=== PATIENT | female | born 1955 | race Caucasian/White ===

== ENCOUNTER 2018-03-12 16:30 | Emergency (ER) | payer MEDICARE, BC ==
[~2018-03-12 16:30] MED LIST: Iopamidol 370 76% 100 ML VIAL ONE
[2018-03-12 17:29] LABS: #Basophils 0.1 thou/uL (0.0-0.2); #Eosinphils 0.1 thou/uL (0.0-0.7); #Lymphocytes 1.4 thou/uL (1.20-3.40); #Monocytes 0.4 thou/uL (0.11-0.59); #Neutrophils 5.5 thou/uL (1.40-6.50); %Basophils 0.7 % (0.0-1.0); %Eosinophils 1.2 % (0.0-10.0); %Lymphocytes 18.9 % (21.0-51.0); %Monocytes 5.3 % (0.0-10.0); %Neutrophils 73.8 % (42.0-75.0); Hemoglobin 13.2 g/dL (12.0-16.0); Mean Corpuscular HGB CONC 34.3 g/dL (32.0-36.0); Mean Corpuscular Hemoglobin 28.4 pg (27.0-31.0); Mean Corpuscular Volume 82.8 fL (78.0-98.0); Mean Platelet Volume 6.4 fL (7.4-10.4); Platelet Count 242 thou/uL (130-400); RBC Distribution Width 11.8 % (11.5-14.5); Red Blood Cell (RBC) Count 4.65 mill/uL (4.20-5.40); White Blood Cell (WBC) Count 7.4 thou/uL (4.8-10.8)
[2018-03-12] MEDS ORDERED: Ondansetron HCl/PF 4 MG/2 ML Vial ONE (17:39)
[2018-03-12 17:40] LABS: ALT (SGPT) 36 U/L (8-55); AST (SGOT) 30 U/L (5-34); Albumin 4.3 g/dL (3.5-5.0); Alkaline Phosphatase 79 U/L (40-150); Anion Gap 14 mmol/L (10-20); BUN (Urea Nitrogen) 18 mg/dL (9.8-20.1); Bilirubin, Total 0.5 mg/dL (0.2-1.2); Calc. Creatinine Clearance 0 mL/min (70-130); Calcium 10.7 mg/dL (7.8-10.44); Carbon Dioxide 27 mmol/L (22-29); Chloride 102 mmol/L (98-107); Estimated GFR-MDRD 58; Globulin 3.5 g/dL (2.4-3.5); Glucose 123 mg/dL (70-105); Lipase 37 U/L (8-78); Potassium 3.9 mmol/L (3.5-5.1); Protein, Total 7.8 g/dL (6.0-8.3); Sodium 139 mmol/L (136-145)
[2018-03-12 17:41] LABS: CKMB 0.8 ng/mL (0-6.6); Troponin I Less than 0.010 ng/mL (< 0.028)
[2018-03-12 19:20] LABS: Bilirubin Negative (Negative); Blood, Urine Moderate (Negative); Clarity Cloudy (Clear); Glucose, Urine (Dipstick) Negative (Negative); Leukocyte Negative (Negative); Nitrite Negative (Negative); Protein, Urine (Dipstick) 100 mg/dL (Neg-Trace); Specific Gravity, Urine 1.015 (1.005-1.030); pH, Urine 5.5 (5.0-9.0)
[2018-03-12 19:22] LABS: Bacteria/HPF 1+ HPF (None Seen); Squamous Epithelial 0-3 HPF (0-3)
[2018-03-12 19:23] LABS: Crystals/HPF 3+ AMORPH URATES HPF (Negative)
--- NOTE | 2018-03-12 20:41 | CT ---
CT ABDOMEN AND PELVIS WITH IV AND ORAL CONTRAST 03/12/18 HISTORY: Abdominal pain. Nausea. Cervical cancer. FINDINGS: The lung bases are clear. Bariatric lap band with dilatation of the distal esophagus. Gallbladder is surgically absent. The liver, spleen, kidneys, adrenal glands and pancreas are unremarkable. Calcific ations within the arterial structures. Urinary bladder is decompressed. Uterus is surgically absent. No enlarged lymph nodes are visible. Degenerative changes of the lumbar spine. IMPRESSION: Postoperative changes of the abdomen and pelvis. No acute abnormalities are demonstrated. POS: [facility]
[2018-03-15 20:15] LABS: Chlamydia by PCR Not Detected (NotDetected); GC by PCR Not Detected (NotDetected)
== END 2018-03-12 20:02 | disposition home or self-care (01) ==
LOC: SCSER 16:30
DX: N93.9 Abnormal uterine and vaginal bleeding, unspecified (principal); R11.2 Nausea with vomiting, unspecified; E78.5 Hyperlipidemia, unspecified; F32.9 Major depressive disorder, single episode, unspecified; Z79.899 Other long term (current) drug therapy
CPT/HCPCS: 74177; 80053; 81003; 81015; 82553; 83605; 83690; 84484; 85025; 87480; 87491; 87510; 87591; 87660; 93005; 96361; 96374; J2405

== ENCOUNTER 2024-04-15 09:58 | Inpatient (IN) | payer BC, MEDICARE ==
[2024-04-20] MEDS ORDERED: Propofol 500 MG/50 ML VIAL ONE (07:06)
[2024-04-20] MEDS ORDERED: Heparin 5,000 UNITS/ML VIAL ONE (07:59)
[2024-04-20] MEDS ORDERED: PROPOFOL 20 ML ONE ×2 (08:10→09:03)
[2024-04-20] MEDS ORDERED: fentaNYL 50 mcg/mL 1 mL Vial ONE ×5 (09:03→15:55)
[2024-04-20] MEDS ORDERED: EPINEPHrine 1 MG/ML VIAL ONE (09:10)
[2024-04-20] MEDS ORDERED: Bupivacaine 0.25% HCL 30 ML VIAL ONE (09:11)
[2024-04-20] MEDS ORDERED: Sodium Chloride 0.9% 100 ML ONE (09:30)
[2024-04-20] MEDS ORDERED: CEFAZOLIN 2 GM VIAL ONE (09:30)
[2024-04-20] MEDS ORDERED: fentaNYL PF 100 MCG/2 ML SYRINGE ONE (09:38)
[2024-04-20] MEDS ORDERED: Lidocaine 1% PF 5 ML VIAL ONE (09:45)
[2024-04-20] MEDS ORDERED: Rocuronium Bromide 10 MG/ML (10ML VIAL) ONE (09:45)
[2024-04-20] MEDS ORDERED: Dexamethasone 20 MG/5 ML VIAL ONE (09:59)
[2024-04-20] MEDS ORDERED: ePHEDrine Sulfate 50 MG/10 ML VIAL ONE (09:59)
[2024-04-20] MEDS ORDERED: PROPOFOL 40 ML ONE (11:08)
[2024-04-20] MEDS ORDERED: PHENYLEPHRINE-NS 100 MCG/ML 10 ML SYRINGE ONE (11:30)
[2024-04-20] MEDS ORDERED: SUGAMMADEX SODIUM 200 MG/2 ML VIAL ONE ×2 (12:03→12:23)
[2024-04-20] MEDS ORDERED: Ondansetron PF 4 MG/2 ML Vial ONE (12:03)
[2024-04-20] MEDS ORDERED: Promethazine HCl 25 MG/ML VIAL IM PRN (12:06)
[2024-04-20] MEDS ORDERED: Ondansetron HCl/PF 4 MG/2 ML Vial IVP PRN (12:06)
[2024-04-20] MEDS ORDERED: traMADol HCl 50 MG TAB PO PRN (12:52)
[2024-04-20] MEDS ORDERED: Glucagon 1 MG/ML KIT IM PRN (12:52)
[2024-04-20] MEDS ORDERED: Dextrose 50% Abboject 50 ML SYRINGE SLOW IVP PRN (12:52)
[2024-04-20] MEDS ORDERED: oxyCODONE 5 MG TAB PO PRN (12:52)
[2024-04-20] MEDS ORDERED: hydrALAZINE 20 MG/ML VIAL SLOW IVP PRN (12:52)
[2024-04-20] MEDS ORDERED: Ondansetron PF 4 MG/2 ML Vial IVP PRN (12:52)
[2024-04-20] MEDS ORDERED: Dextrose 5% in Water 1,000 ML IV PRN (12:52)
[2024-04-20] MEDS ORDERED: Ipratropium/Albuterol 3 ML NEB NEB PRN (12:52)
[2024-04-20] MEDS ORDERED: diphenhydrAMINE 50 MG/ML VIAL IVP PRN (12:52)
[2024-04-20] MEDS: Acetaminophen 650 MG/20.3 ML UDCUP PO SCH (13:30)
[2024-04-20] MEDS: Ketorolac Tromethamine 30 MG (1 mL) VIAL IVP SCH (17:34)
[2024-04-20 17:43] VITALS: BMI 40.4
[2024-04-20] MEDS: D5 1/2 NS w/20 mEq KCL 1,000 ML IV SCH (18:26)
[2024-04-20] MEDS: Promethazine HCl 25 MG/ML VIAL IM PRN (21:36)
[2024-04-21 05:02] LABS: #Basophils Less than 0.03 10x3/uL (0.0-0.2); #Eosinophils Less than 0.03 10x3/uL (0.0-0.7); %Basophils 0.1 % (0.0-1.0); %Lymphocytes 10.2 % (21.0-51.0); %Neutrophils 82.4 % (42.0-75.0); Hematocrit 32.6 % (36.0-47.0); Mean Corpuscular HGB CONC 30.7 g/dL (32.0-36.0); Mean Corpuscular Hemoglobin 28.7 pg (27.0-31.0); Mean Corpuscular Volume 93.4 fL (78.0-98.0); Mean Platelet Volume 8.6 fL (7.4-10.4); Platelet Count 196 10x3/uL (130-400); RBC Distribution Width 13.6 % (11.5-14.5); Red Blood Cell (RBC) Count 3.49 mill/uL (4.20-5.40)
[2024-04-21 05:21] LABS: Anion Gap 9 mmol/L (10-20); BUN (Urea Nitrogen) 11 mg/dL (9.8-20.1); Calc. Creatinine Clearance 106 mL/min (70-130); Calcium 8.5 mg/dL (7.8-10.44); Carbon Dioxide 26 mmol/L (23-31); Chloride 110 mmol/L (98-107); Estimated GFR 72; Glucose 130 mg/dL (80-115); Potassium 4.3 mmol/L (3.5-5.1); Sodium 141 mmol/L (136-145)
[2024-04-21 07:45] VITALS: BP 130/69; TEMP 98.7
[2024-04-21] MEDS: Enoxaparin 40 MG (0.4 mL) SYRINGE SC SCH (08:09)
[2024-04-21] MEDS: Pantoprazole 40 MG VIAL IVP SCH (08:09)
== END 2024-04-21 09:09 | disposition home or self-care (01) | DRG 621 ==
LOC: SURG A 04-20 06:37 → EDSTATUS 04-20 13:00 → SURG B 04-20 17:08
PROVIDERS: ADMIT Surgery; ATTEND Surgery
PROC: 0D164ZA Bypass Stomach to Jejunum, Percutaneous Endoscopic Approach (ICD-10-PCS; principal; 2024-04-20)
PROC: 8E0W4CZ Robotic Assisted Procedure of Trunk Region, Percutaneous Endoscopic Approach (ICD-10-PCS; 2024-04-20)
PROC: 0DP64CZ Removal of Extraluminal Device from Stomach, Percutaneous Endoscopic Approach (ICD-10-PCS; 2024-04-20)
DX: E66.01 Morbid (severe) obesity due to excess calories (principal); K21.9 Gastro-esophageal reflux disease without esophagitis; Z68.41 Body mass index [BMI] 40.0-44.9, adult
CPT/HCPCS: 36415; 80048; 85025; J0171; J0665; J1100; J1644; J1650; J1885; J2405; J2470; J2550; J2704; J3010; J3480

== ENCOUNTER 2024-04-15 10:59 | Outpatient (CLI) | payer BC, MEDICARE ==
[2024-04-15 13:56] LABS: #Basophils 0.05 10x3/uL (0.0-0.2); %Basophils 0.7 % (0.0-1.0); %Eosinophils 2.5 % (0.0-10.0); %Lymphocytes 20.3 % (21.0-51.0); %Neutrophils 70.2 % (42.0-75.0); Hematocrit 36.5 % (36.0-47.0); Hemoglobin 11.8 g/dL (12.0-16.0); Mean Corpuscular HGB CONC 32.3 g/dL (32.0-36.0); Mean Corpuscular Hemoglobin 30.1 pg (27.0-31.0); Mean Corpuscular Volume 93.1 fL (78.0-98.0); Mean Platelet Volume 9.1 fL (7.4-10.4); Platelet Count 256 10x3/uL (130-400); RBC Distribution Width 13.8 % (11.5-14.5); Red Blood Cell (RBC) Count 3.92 mill/uL (4.20-5.40)
[2024-04-15 14:07] LABS: ALT (SGPT) 26 U/L (8-55); AST (SGOT) 25 U/L (5-34); Albumin 3.9 g/dL (3.4-4.8); Alkaline Phosphatase 82 U/L (40-110); Anion Gap 10 mmol/L (10-20); BUN (Urea Nitrogen) 15 mg/dL (9.8-20.1); Bilirubin, Total 0.3 mg/dL (0.2-1.2); Calc. Creatinine Clearance 0 mL/min (70-130); Calcium 9.8 mg/dL (7.8-10.44); Carbon Dioxide 26 mmol/L (23-31); Chloride 107 mmol/L (98-107); Estimated GFR 88; Globulin 3.2 g/dL (2.4-3.5); Glucose 91 mg/dL (80-115); Protein, Total 7.1 g/dL (5.8-8.1); Sodium 139 mmol/L (136-145)
[2024-04-15 14:13] LABS: Hemoglobin A1c 5.4 % (4.0-6.0)
== END 2024-04-15 11:00 | disposition home or self-care (01) ==
LOC: LABBT 10:59
PROVIDERS: ATTEND Surgery
DX: Z01.818 Encounter for other preprocedural examination (principal); K21.9 Gastro-esophageal reflux disease without esophagitis; E66.01 Morbid (severe) obesity due to excess calories
CPT/HCPCS: 80053; 83036; 85025; 93005; 93010